=== PATIENT | female | born 1990 | race Two or more races ===

== ENCOUNTER 2019-11-05 01:24 | Emergency (ER) | payer MEDICAID ==
[~2019-11-05] VITALS: Ht 162.6 cm; Wt 63.5 kg
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
--- NOTE | 2019-11-05 01:55 | NUR ---
PT AMBULATED WITH STEADY GAIT. VSS. Patient discharged to home in stable condition. Written and verbal after care instructions given. Patient verbalizes understanding of instruction. Pt refused to sign discharge papers.
[2019-11-05 02:05] VITALS: BP 115/72
== END 2019-11-05 02:06 | disposition home or self-care (01) ==
LOC: ER 01:24
DX: F10.129 Alcohol abuse with intoxication, unspecified (principal); Y90.9 Presence of alcohol in blood, level not specified